=== PATIENT | female | born 1980 | race Caucasian/White ===

== ENCOUNTER → 2020-12-27 | Outpatient (CLI) | payer OTHER ==
--- NOTE | 2020-12-27 15:50 | RAD ---
AP, lateral, and oblique views of the left foot were obtained. History: Reason: LEFT FOOT PAIN, HEAVY OBJECT FELL ON TOP OF FOOT / Spl. Instructions: / History: Comparison: none. There is no fracture, subluxation or dislocation. No significant degenerative changes, or significant soft tissue swelling seen. The bones of the midfoot are well aligned. Impression: 1. Negative exam of the left foot Electronically signed by: Rinku Pizano MD (12/27/2020 3:48 PM) [facility]
== END ==
LOC: RAD 15:18
PROVIDERS: ATTEND Nurse Practitioner Family
DX: S99.922A Unspecified injury of left foot, initial encounter (principal); X58.XXXA Exposure to other specified factors, initial encounter; Y93.89 Activity, other specified; Y92.89 Other specified places as the place of occurrence of the external cause; Y99.8 Other external cause status
CPT/HCPCS: 73630

== ENCOUNTER → 2021-05-03 | Outpatient (CLI) | payer OTHER ==
--- NOTE | 2021-05-03 11:04 | RAD ---
INDICATION: Reason: CHRONIC SINUSITIS / Spl. Instructions: ANTIOBIOTICS NOT WORKING / History: . COMPARISON: None. TECHNIQUE: Axial CT images obtained through the facial bones. One or more of the following individualized dose reduction techniques were utilized for this examinat ion: 1. Automated exposure control; 2. Adjustment of the mA and/or kV according to patient size; 3 . Use of iterative reconstruction technique. FINDINGS: Maxillary sinuses are well aerated. Mastoid air cells are well aerated. Sphenoid sinus, frontal sinus and ethmoid air cells well aerated with trace fluid in the ethmoid air cells on the right. IMPRESSION: * No CT evidence of sinusitis. Electronically signed by: Gurinder Dumont MD (05/03/2021 11:01 AM) [id number]
== END ==
LOC: CT 09:56
PROVIDERS: ATTEND Otolaryngology
DX: J32.4 Chronic pansinusitis (principal); J31.0 Chronic rhinitis
CPT/HCPCS: 70486

== ENCOUNTER → 2021-06-13 | Outpatient (CLI) | payer OTHER ==
[~2021-06-13] MED LIST: AIMOVIG; BOTOX; DULO60CA7 PO; FLUO10CA13 PO; GABA-586 PO; ONDA4TAB12 PO; PROAIR RESPICL90 MCG IH; PROGESTERONE; SUMATRIPTAN
--- NOTE | 2021-06-13 15:15 | RAD ---
EXAM: Pelvic sonogram. HISTORY: Prolonged menstrual cycle. TECHNIQUE: Transabdominal and transvaginal sonographic imaging of the pelvis was performed. COMPARISON: None. FINDINGS: The uterus measures 9.6 x 5.6 x 4.7 cm. The endometrial stripe measures 1.2 cm in thickness . The right ovary is not seen. This is likely obscured due to loops of bowel within the right adnexa. The left ovary is enlarged due to a dominant cyst with internal daughter cyst measuring 5.2 cm in ma ximum dimension. There is normal blood flow within the surrounding left ovarian parenchyma. There is a complex nabothian cyst within the cervix with internal debris measuring 1.7 cm. There is no pelvic free fluid. IMPRESSION: 1. 5.2 cm left ovarian cyst with daughter cyst. No suspicious solid lesion component is seen. 2. Obscured right ovary. 3. Prominent endometrial stripe. Correlate with phase the patient's menstrual cycle. 4. 1.7 cm complex nabothian cyst with internal debris. Electronically signed by: Ines Wyatt MD (06/13/2021 3:12 PM) [id number]
== END ==
LOC: US 13:51
PROVIDERS: ATTEND Physician Assistant
DX: N83.202 Unspecified ovarian cyst, left side (principal); N83.8 Other noninflammatory disorders of ovary, fallopian tube and broad ligament; N88.8 Other specified noninflammatory disorders of cervix uteri
CPT/HCPCS: 76830; 76856

== ENCOUNTER → 2021-06-14 | Day surgery (SDC) | payer OTHER ==
[~2021-06-14] MED LIST changes: +GELATIN SPONGE SIZE 12-7MM SPONGE. ONE; +IPRATRPIUM/ALBUTEROL 0.5/2.5MG 3 ML NEBU. NEB PRN; +IV RINGERS SOLUTION,LACTATED 1,000 ML IV SCH; +LIDOCAINE 1%/EPI 1:100,000 20 ML VIAL. IJ ONE; +LIDOCAINE 1%/EPI 1:100,000 20 ML VIAL. ONE; +LIDOCAINE 2% PF 5 ML VIAL. ONE; +MIDAZOLAM HCL PF 2 MG/2 ML VIAL. IV ONE; +MIDAZOLAM HCL PF 2 MG/2 ML VIAL. ONE; +ONDANSETRON PF 4 MG/2 ML VIAL. IV PRN; +ONDANSETRON PF 4 MG/2 ML VIAL. ONE; +OXYMETAZOLINE 0.05% NASAL SPRAY 30ML BOTTLE. NS ONE; +PROPOFOL 10,000 MCG/ML (20ML) VIAL IV ONE; +SEVOFLURANE 16 TO 30 MINUTES. IH ONE; +SUCCINYLCHOLINE 200 MG/10 ML VIAL. ONE
[2021-06-14 09:40] LABS: U PREG PATIENT NEGATIVE (NEG)
--- NOTE | 2021-06-14 09:45 | NUR ---
RN states rapid COVID test negative.
[2021-06-14 12:37] VITALS: BP 125/87
--- NOTE | 2021-06-14 19:51 | OP ---
DATE OF SURGERY: 06/14/2021 PREOPERATIVE DIAGNOSIS: Nasal obstruction from chronic turbinate hypertrophy. POSTOPERATIVE DIAGNOSIS: Nasal obstruction from chronic turbinate hypertrophy. PROCEDURE PERFORMED: Radiofrequency reduction of the inferior nasal turbinates using Coblation. ANESTHESIA: General anesthetic. ESTIMATED BLOOD LOSS: Less than 5 mL. No pathological tissue was submitted for evaluation. DESCRIPTION OF PROCEDURE: The patient was placed on the operating room table in a supine position. She was given a general anesthetic. Her nose was examined and the inferior turbinate hypertrophy identified. In the left side, there was anterior and posterior turbinate hypertrophy. There was a slight deviation of the nasal septum, but it was not considered to be obstructive. In the right side, there was turbinate hypertrophy that primarily involved the inferior turbinate, anterior portion. The nose was then irrigated and some decongestion was accomplished applying Afrin nasal spray. The inferior turbinates were then expanded with inter-turbinal injection of saline. This facilitated placement of the radiofrequency probe. In the left side of the nose, both the anterior and the posterior segments were treated with radiofrequency energy application intramurally until a noticeable retraction of the turbinate tissue was appreciated. In the right side, a similar approach was used, applying intramural injection of saline to expand the turbinate tissue and then intramural application of the radiofrequency energy using a Coblation wand and noting the retraction of the tissue. At the conclusion, both inferior turbinates were by using a large nasal speculum. The nasopharynx was irrigated and suctioned. No active bleeding was occurring. The patient was then recovered from her anesthesia and she was taken to the recovery room in stable condition. EMPERATRIZ/VIVIANA DR: Enrrique TID: [id number]
== END | disposition home or self-care (01) ==
LOC: SURG 09:14
PROVIDERS: ATTEND Otolaryngology
DX: J34.89 Other specified disorders of nose and nasal sinuses (principal); J34.3 Hypertrophy of nasal turbinates; K21.9 Gastro-esophageal reflux disease without esophagitis; J45.909 Unspecified asthma, uncomplicated; G44.021 Chronic cluster headache, intractable; J31.0 Chronic rhinitis; Z72.89 Other problems related to lifestyle; Z88.0 Allergy status to penicillin; Z88.2 Allergy status to sulfonamides; Z88.5 Allergy status to narcotic agent; Z79.899 Other long term (current) drug therapy
CPT/HCPCS: 30801; 81025; J0171; J0330; J2001; J2250; J2405; J2704; J3010; J7120; A4657

== ENCOUNTER → 2021-06-29 | Outpatient (CLI) | payer OTHER ==
[2021-06-14 12:37] VITALS: BP 125/87
[~2021-06-29] MED LIST changes: -GELATIN SPONGE SIZE 12-7MM SPONGE. ONE; -IPRATRPIUM/ALBUTEROL 0.5/2.5MG 3 ML NEBU. NEB PRN; -IV RINGERS SOLUTION,LACTATED 1,000 ML IV SCH; -LIDOCAINE 1%/EPI 1:100,000 20 ML VIAL. IJ ONE; -LIDOCAINE 1%/EPI 1:100,000 20 ML VIAL. ONE; -LIDOCAINE 2% PF 5 ML VIAL. ONE; -MIDAZOLAM HCL PF 2 MG/2 ML VIAL. IV ONE; -MIDAZOLAM HCL PF 2 MG/2 ML VIAL. ONE; -ONDANSETRON PF 4 MG/2 ML VIAL. IV PRN; -ONDANSETRON PF 4 MG/2 ML VIAL. ONE; -OXYMETAZOLINE 0.05% NASAL SPRAY 30ML BOTTLE. NS ONE; -PROPOFOL 10,000 MCG/ML (20ML) VIAL IV ONE; -SEVOFLURANE 16 TO 30 MINUTES. IH ONE; -SUCCINYLCHOLINE 200 MG/10 ML VIAL. ONE
[2021-06-30 10:08] LABS: ANTI-DS DNA 5 IU/mL (0-9); SMITH AB <0.2 AI (0.0-0.9); SSA ANTIBODY <0.2 AI (0.0-0.9); SSB ANTIBODY <0.2 AI (0.0-0.9)
[2021-06-30 20:16] LABS: ANA INTERP Negative (.)
== END ==
LOC: LAB 10:12
PROVIDERS: ATTEND Physician Assistant
DX: R21 Rash and other nonspecific skin eruption (principal)
CPT/HCPCS: 36415; 86038; 86235; 86255

== ENCOUNTER → 2021-08-24 | Outpatient (CLI) | payer OTHER ==
[2021-06-14 12:37] VITALS: BP 125/87
--- NOTE | 2021-08-24 11:49 | RAD ---
EXAM: 3 radiographs of the cervical spine. DATE: 08/24/2021 11:18 AM CLINICAL HISTORY: Reason: MUSCLE SPASM, NECK PAIN / Spl. Instructions: / History: COMPARISON: None available. FINDINGS: On the lateral view, the cervical spine is imaged from the skull base to T2. Vertebral body heights are preserved. Intervertebral disc heights are preserved. Loss of normal cervical lordotic curvature, likely positional. No spondylolisthesis. Normal predental space. No significant prevertebral soft tissue swelling. Minimal multilevel uncovert ebral facet arthrosis. IMPRESSION: Unremarkable cervical spine radiograph. Electronically signed by: Suraj Davalos DO (08/24/2021 11:47 AM) [id number]
== END ==
LOC: RAD 11:04
PROVIDERS: ATTEND Nurse Practitioner Family
DX: M47.812 Spondylosis without myelopathy or radiculopathy, cervical region (principal); M62.838 Other muscle spasm
CPT/HCPCS: 72040